=== PATIENT | male | born 1955 | race Caucasian/White ===

== ENCOUNTER → 2018-10-19 | Outpatient (CLI) | payer BC ==
[~2018-10-19] MED LIST: BARIUM SUSPENSION 2.1% (REDI-CAT 2) 450 ML PO ONE
--- NOTE | 2018-10-19 12:54 | Diagnostic Imaging Report ---
PROCEDURE: CT abdomen and pelvis without contrast. TECHNIQUE: Multiple contiguous axial images were obtained through the abdomen and pelvis without the use of intravenous contrast. INDICATION: Malignant neoplasm of the right kidney, status post nephrectomy. COMPARISON: No prior studies are available for comparison. The lung bases are clear. The liver contains a tiny low density in the right lobe measuring 6 mm. This is too small to accurately characterize. No other liver lesions are seen. The gallbladder is unremarkable. No biliary ductal dilatation is seen. The pancreas and spleen are unremarkable. No adrenal mass is identified. The right kidney is surgically absent. No definite residual or recurrent mass in the right renal fossa is identified. Solitary left kidney is unremarkable. No definite hydronephrosis is identified. Aorta is nonaneurysmal. No central retroperitoneal or mesenteric lymphadenopathy is identified. Small and large bowel loops are normal in caliber. Bladder is unremarkable. There is no ascites. No definite pelvic lymphadenopathy is seen. IMPRESSION: 1. Status post right nephrectomy. No residual or recurrent mass is seen. No definite findings to suggest metastatic disease are detected. Dictated by: Dictated on workstation # [id number]
== END ==
LOC: RAD FS 09:55
PROVIDERS: ATTEND Emergency Medicine
DX: C64.1 Malignant neoplasm of right kidney, except renal pelvis (principal); Z90.5 Acquired absence of kidney
CPT/HCPCS: 74176

== ENCOUNTER 2018-12-22 05:40 | Outpatient (CLI) | payer BC ==
[~2018-12-22] VITALS: Ht 177.8 cm; Wt 96.2 kg
[2018-12-22] MEDS ORDERED: CHLO25CA10 PO (12:58)
[2018-12-22] MEDS ORDERED: SERT100T PO (15:32)
[2018-12-22] MEDS ORDERED: CARV25TA PO (15:32)
[2018-12-22] MEDS ORDERED: LOSA100T57 PO (15:32)
[2018-12-22] MEDS ORDERED: SIMV80TA2 PO (15:32)
[2018-12-22] MEDS ORDERED: LISI1TAB8 PO (15:32)
[2018-12-22] MEDS ORDERED: EZET10TA5 PO (15:32)
[2018-12-22] MEDS ORDERED: RANI150T46 PO (15:32)
[2018-12-22] MEDS ORDERED: QUET50TA PO (15:32)
[2018-12-24] MEDS ORDERED: HYDR-34 PO (13:37)
== END 2018-12-22 15:42 | disposition home or self-care (01) ==
LOC: PREOP 05:40
PROVIDERS: ATTEND Surgery
DX: Z01.818 Encounter for other preprocedural examination (principal)

== ENCOUNTER 2018-12-25 23:14 | Inpatient (IN) | payer BC ==
[~2018-12-25] VITALS: Ht 177.8 cm; Wt 100.3 kg
[~2018-12-25 23:14] MED LIST changes: -BARIUM SUSPENSION 2.1% (REDI-CAT 2) 450 ML PO ONE; +CARV25TA PO; +CHLO25CA10 PO; +EZET10TA5 PO; +HYDR-34 PO; +LISI1TAB8 PO; +LOSA100T57 PO; +QUET50TA PO; +RANI150T46 PO; +SERT100T PO; +SIMV80TA2 PO
[2018-12-25] MEDS ORDERED: RT-ALBUTEROL/IPRATROPIUM 3 ML (DUONEB) VIAL INH ONE (23:45)
--- NOTE | 2018-12-25 23:49 | ED General ---
General Chief Complaint: Respiratory Problems Stated Complaint: SOB Source of Information: Patient Exam Limitations: No Limitations History of Present Illness Date Seen by Provider: December 25, 2018 Time Seen by Provider: 23:37 Initial Comments Here with increasing shortness of breath today. Did have a ventral hernia repair yesterday and was doing okay until this morning when it became increasingly short of breath. That persisted throughout the day until tonight. They opted to come here from [place] because there is concerns that he might need to be admitted. On arrival he was 78% on room air and he is not normally on oxygen. Does have history of COPD. He is having cough and wheezing. He does have coarse and wet sounding cough. Denies fever. Does have chronic diarrhea since his kidney removal last year. He did have renal cancer. Denies nausea or vomiting. Denies chest pain. Timing/Duration: 12-24 Hours Severity: Moderate Modifying Factors: worse with Movement Associated Systoms: No Chest Pain; Cough; No Fever/Chills, No Nausea/Vomiting; Shortness of Air, Weakness Allergies and Home Medications Allergies Coded Allergies: No Known Drug Allergies (Unverified , 12/22/18) Home Medications Carvedilol 25 Mg Tablet, 25 MG PO BID, (Reported) Chlordiazepoxide HCl 25 Mg Capsule, 25 MG PO QID, (Reported) Ezetimibe 10 Mg Tablet, 10 MG PO DAILY, (Reported) Hydrocodone Bit/Acetaminophen 1 Ea Tablet, 1 EACH PO Q4H PRN for PAIN-MODERATE Prescribed by: FINESSE RAI on 12/24/18 1337 Lisinopril/Hydrochlorothiazide 1 Each Tablet, 1 EACH PO DAILY, (Reported) Losartan Potassium 100 Mg Tablet, 100 MG PO DAILY, (Reported) Quetiapine Fumarate 50 Mg Tablet, 50 MG PO HS, (Reported) Ranitidine HCl 150 Mg Tablet, 150 MG PO DAILY, (Reported) Sertraline HCl 100 Mg Tablet, 100 MG PO DAILY, (Reported) Simvastatin 80 Mg Tablet, 40 MG PO HS, (Reported) Patient Home Medication List Home Medication List Reviewed: Yes Review of Systems Review of Systems Constitutional: see HPI; No chills, No fever EENTM: no symptoms reported Respiratory: see HPI Cardiovascular: No chest pain, No edema Gastrointestinal: No abdominal pain, No nausea, No vomiting; other (mild abdominal pain related to post operative pain.) Genitourinary: no symptoms reported Musculoskeletal: no symptoms reported All Other Systems Reviewed Negative Unless Noted: Yes Past Hsjzwox-Qdanja-Zhmpoc Hx Past Med/Social Hx: Reviewed Nursing Past Med/Soc Hx Patient Social History Alcohol Use: Denies Use Recreational Drug Use: No Smoking Status: Former Smoker Type Used: Cigarettes Former Smoker, Quit: Jul 24, 2018 2nd Hand Smoke Exposure: No Recent Foreign Travel: No Contact w/Someone Who Travel: No Recent Hopitalizations: No Seasonal Allergies Seasonal Allergies: No Past Medical History Surgeries: Yes (leg fx, knee scope) Abdominal, Nephrectomy, Orthopedic Respiratory: Yes Emphysema Cardiac: Yes Hypertension Neurological: No Genitourinary: Yes (kidney cancer) Gastrointestinal: Yes Abdominal Hernia, Gastroesophageal Reflux, Irritable Bowel Musculoskeletal: Yes Chronic Back Pain Endocrine: No HEENT: No Cancer: Yes Kidney What Type of Treatment Did You: Surgical Intervention Psychosocial: Yes Depression Integumentary: No Blood Disorders: No Family Medical History Reviewed and Corrections made No Pertinent Family Hx Physical Exam-Suspected Sepsis Physical Exam Vital Signs Vital Signs - First Documented 12/25/18 12/25/18 23:28 23:30 Temp 98.0 Pulse 69 Resp 22 B/P (MAP) 110/88 (95) Pulse Ox 78 O2 Delivery Room Air O2 Flow Rate 5.00 Capillary Refill : Height, Weight, BMI Height: 5'10.00" Weight: 212lbs. 0.0oz. 96.975559br; 30.4 BMI Method: General Appearance: WD/WN, Mild Distress (respiratory improved with oxygen) HEENT: PERRL/EOMI, Pharynx Normal Neck: Non Tender, Supple Respiratory: Lungs Clear, Normal Breath Sounds Cardiovascular: Regular Rate, Rhythm, No Murmur Gastrointestinal: Soft, Tenderness (near incision covered with a binder) Back: Normal Inspection, No CVA Tenderness, No Vertebral Tenderness Extremity: Normal Range of Motion, Non Tender Neurologic/Psychiatric: Alert, Oriented x3 Skin: normal color, warm/dry Focused Exam Lactate Level 12/25/18 23:30: Lactic Acid Level 1.21 Lactic Acid Level Laboratory Tests Test 12/25/18 23:30 Lactic Acid Level 1.21 MMOL/L (0.50-2.00) Progress/Results/Core Measures Suspected Sepsis SIRS Temperature: Pulse: Respiratory Rate: Laboratory Tests 12/25/18 23:30: White Blood Count 14.2H Blood Pressure / Mean: 5/24/19 23:30: Lactic Acid Level 1.21 Laboratory Tests 12/25/18 23:30: Creatinine 1.47H, INR Comment 1.1, Platelet Count 158, Total Bilirubin 1.2H Results/Orders Lab Results Laboratory Tests Test 12/25/18 23:30 12/25/18 23:40 Range/Units White Blood Count 14.2 H 4.3-11.0 10^3/uL Red Blood Count 3.83 L 4.35-5.85 10^6/uL Hemoglobin 12.4 L 13.3-17.7 G/DL Hematocrit 35 L 40-54 % Mean Corpuscular Volume 92 80-99 FL Mean Corpuscular Hemoglobin 32 25-34 PG Mean Corpuscular Hemoglobin Concent 35 32-36 G/DL Red Cell Distribution Width 13.1 10.0-14.5 % Platelet Count 158 130-400 10^3/uL Mean Platelet Volume 9.6 7.4-10.4 FL Neutrophils (%) (Auto) 83 H 42-75 % Lymphocytes (%) (Auto) 5 L 12-44 % Monocytes (%) (Auto) 11 0-12 % Eosinophils (%) (Auto) 2 0-10 % Basophils (%) (Auto) 0 0-10 % Neutrophils # (Auto) 11.8 H 1.8-7.8 X 10^3 Lymphocytes # (Auto) 0.7 L 1.0-4.0 X 10^3 Monocytes # (Auto) 1.5 H 0.0-1.0 X 10^3 Eosinophils # (Auto) 0.2 0.0-0.3 10^3/uL Basophils # (Auto) 0.0 0.0-0.1 10^3/uL Neutrophils % (Manual) 86 % Lymphocytes % (Manual) 4 % Monocytes % (Manual) 10 % Prothrombin Time 15.1 H 12.2-14.7 SEC INR Comment 1.1 0.8-1.4 Activated Partial Thromboplast Time 40 H 24-35 SEC Sodium Level 124 *L 135-145 MMOL/L Potassium Level 4.1 3.6-5.0 MMOL/L Chloride Level 89 L 98-107 MMOL/L Carbon Dioxide Level 24 21-32 MMOL/L Anion Gap 11 5-14 MMOL/L Blood Urea Nitrogen 17 7-18 MG/DL Creatinine 1.47 H 0.60-1.30 MG/DL Estimat Glomerular Filtration Rate 49 BUN/Creatinine Ratio 12 Glucose Level 116 H 70-105 MG/DL Lactic Acid Level 1.21 0.50-2.00 MMOL/L Calcium Level 9.0 8.5-10.1 MG/DL Corrected Calcium 8.8 8.5-10.1 MG/DL Total Bilirubin 1.2 H 0.1-1.0 MG/DL Aspartate Amino Transf (AST/SGOT) 20 5-34 U/L Alanine Aminotransferase (ALT/SGPT) 19 0-55 U/L Alkaline Phosphatase 54 40-136 U/L Total Protein 7.2 6.4-8.2 GM/DL Albumin 4.2 3.2-4.5 GM/DL Blood Gas Puncture Site RIGHT RADIAL Blood Gas Patient Temperature 98.0 Arterial Blood pH 7.34 *L 7.37-7.43 Arterial Blood Partial Pressure CO2 51 H 35-45 MMHG Arterial Blood Partial Pressure O2 82 79-93 MMHG Arterial Blood HCO3 27 23-27 MMOL/L Arterial Blood Total CO2 28.5 21.0-31.0 MMOL/L Arterial Blood Oxygen Saturation 96 94-100 % Arterial Blood Base Excess 1.7 -2.5-2.5 MMOL/L Sudhakar Test POSITIVE Blood Gas Ventilator Setting NO Blood Gas Inspired Oxygen 5 My Orders Orders - MAYTE TAY MD Cbc With Automated Diff (12/25/18 23:40) Comprehensive Metabolic Panel (12/25/18 23:40) Blood Culture (12/25/18 23:40) Sputum Culture (12/25/18 23:40) Protime With Inr (12/25/18 23:40) Partial Thromboplastin Time (12/25/18 23:40) Ed Iv/Invasive Line Start (12/25/18 23:40) Ekg Tracing (12/25/18 23:40) Vital Signs Adult Sepsis Patie Q15M (12/25/18 23:40) O2 (12/25/18 23:40) Remove Rings In Anticipation O (12/25/18 23:40) Lactic Acid Analyzer (12/25/18 23:40) Albuterol/Ipra Inhalation Soln (Duoneb I (12/25/18 23:45) Svn Small Volume Nebulizer (12/25/18 23:40) Arterial Blood Gas (12/25/18 23:40) Manual Differential (12/25/18 23:30) Albuterol Pre-Mix Nebs (Rt) (Proventil (12/25/18 23:59) Chest 1 View, Ap/Pa Only (12/26/18 00:01) Ipratropium 0.02% Neb Solution (Atrovent (12/26/18 00:22) Urinalysis (12/26/18 00:29) Urine Culture (12/26/18 00:29) Albuterol Pre-Mix Nebs (Rt) (Proventil (12/26/18 00:57) Ipratropium 0.02% Neb Solution (Atrovent (12/26/18 01:00) Svn Small Volume Nebulizer (12/26/18 00:57) Svn Small Volume Nebulizer (12/26/18 00:57) Ed Iv/Invasive Line Start (12/26/18 01:02) Ns Iv 1000 Ml (Sodium Chloride 0.9%) (12/26/18 01:02) Cefepime Injection (Maxipime Injection) (12/26/18 01:15) Methylprednisolone Sod Succ (Solu-Medrol (12/26/18 01:14) Vital Signs/I&O 12/25/18 12/25/18 23:28 23:30 Temp 98.0 Pulse 69 Resp 22 B/P (MAP) 110/88 (95) Pulse Ox 78 95 O2 Delivery Room Air Nasal Cannula O2 Flow Rate 5.00 Capillary Refill : Progress Note : Progress Note Seen and evaluated. IV, labs, blood cultures, lactic acid, EKG and chest x-ray ordered. Duo neb ordered. We will go ahead and check ABG as patient appears to be somewhat groggy and there is concerns about hypercarbia. Patient was certainly hypoxic on arrival and is at 94% on a couple liters via nasal cannula. Monitor patient. Repeat albuterol 3 ordered and completed. This did help a little bit but did not completely resolve his symptoms. We will initiate Vapotherm due to relative hypoxia on ABG on 5 L nasal cannula. We will also initiate continuous hour-long treatment. I did discuss the case with Dr. Carrillo at 0100. He accepts patient for admission, inpatient status for COPD exacerbation. Patient is coughing up thick mucus. While this may be COPD, he does have elevated white count. Lactic acid is negative. I do not believe he has significant sepsis event. We will give normal saline [address] angiogram of the chest but he only has one kidney so we will hold on that. Solu- Medrol 125 mg IV ordered and cefepime 1 g IV ordered. We will continue gentle hydration after first liter of fluid. Overall patient is doing much better now. Patient agrees to admission. ECG Initial ECG Impression Date: December 25, 2018 Initial ECG Impression Time: 23:48 Initial ECG Rate: 68 Initial ECG Rhythm: Normal Sinus Comment Sinus rhythm with normal axis. No evidence of ST elevation SD. No previous available for comparison. Interpreted by me. Diagnostic Imaging Diagonstic Imaging: Xray Plain Films/CT/US/NM/MRI: chest Comments Bibasilar atelectasis versus infiltrate. Departure Communication (Admissions) Time/Spoke to Admitting Phy: 01:00 Impression Primary Impression: COPD exacerbation Additional Impressions: Pneumonia Qualified Codes: J18.1 - Lobar pneumonia, unspecified organism Hypoxia Disposition: ADMITTED INPATIENT Condition: Stable Admissions Decision to Admit Reason: Admit from ER (General) Decision to Admit/Date: December 26, 2018 Time/Decision to Admit Time: 01:00 Departure-Patient Inst. Referrals: MARCO A KIM DO (PCP/Family) Primary Care Physician MAYTE TAY MD December 25, 2018 23:49
[2018-12-25 23:50] LABS: BASOPHILS % (AUTO) 0 % (0-10); EOSINOPHILS # (AUTO) 0.2 10^3/uL (0.0-0.3); EOSINOPHILS % (AUTO) 2 % (0-10); HEMATOCRIT 35 % (40-54); HEMOGLOBIN 12.4 G/DL (13.3-17.7); LYMPHOCYTES # (AUTO) 0.7 X 10^3 (1.0-4.0); LYMPHOCYTES % (AUTO) 5 % (12-44); MEAN CORPUSCULAR HEMOGLOBIN 32 PG (25-34); MEAN CORPUSCULAR HGB CONC 35 G/DL (32-36); MEAN CORPUSCULAR VOLUME 92 FL (80-99); MEAN PLATELET VOLUME 9.6 FL (7.4-10.4); MONOCYTES # (AUTO) 1.5 X 10^3 (0.0-1.0); MONOCYTES % (AUTO) 11 % (0-12); NEUTROPHILS # (AUTO) 11.8 X 10^3 (1.8-7.8); NEUTROPHILS % (AUTO) 83 % (42-75); PLATELET COUNT 158 10^3/uL (130-400); RED CELL DISTRIBUTION WIDTH 13.1 % (10.0-14.5); WHITE BLOOD COUNT 14.2 10^3/uL (4.3-11.0)
[2018-12-25 23:53] LABS: ABG BASE EXCESS 1.7 MMOL/L (-2.5-2.5); ABG OXYGEN SATURATION 96 % (94-100); ABG PCO2 51 MMHG (35-45); ABG PO2 82 MMHG (79-93); ABG TCO2 28.5 MMOL/L (21.0-31.0)
[2018-12-25 23:54] LABS: ABG PH 7.34 (7.37-7.43); ALLENS TEST POSITIVE; INSPIRED O2 5; VENTILATOR NO
[2018-12-25 23:56] LABS: INR 1.1 (0.8-1.4); PROTHROMBIN TIME PATIENT 15.1 SEC (12.2-14.7)
[2018-12-25] MEDS ORDERED: RT-ALBUTEROL SULF 2.5 MG/3 ML PRE-MIX VIAL INH STA (23:59)
[2018-12-26] VITALS (24 sets, daily range): BP systolic 125–169; BP diastolic 52–107
[2018-12-26 00:03] LABS: ALBUMIN 4.2 GM/DL (3.2-4.5); BILIRUBIN,TOTAL 1.2 MG/DL (0.1-1.0); CREATININE SERUM 1.47 MG/DL (0.60-1.30); POTASSIUM 4.1 MMOL/L (3.6-5.0); TOTAL PROTEIN 7.2 GM/DL (6.4-8.2)
[2018-12-26] MEDS ORDERED: RT-IPRATROPIUM (ATROVENT) 0.5MG/2.5ML AMP IH ONE ×2 (00:22→01:00)
[2018-12-26 00:28] LABS: LYMPHOCYTES % (MANUAL) 4 %; MONOCYTES % (MANUAL) 10 %; NEUTROPHILS % (MANUAL) 86 %
[2018-12-26] MEDS ORDERED: RT-ALBUTEROL SULF 2.5 MG/3 ML PRE-MIX VIAL INH STA (00:57)
[2018-12-26] MEDS ORDERED: NS IV 1000 ML 1,000 ML IV ONE (01:02)
[2018-12-26] MEDS ORDERED: methylPREDNISolone 125 MG (Solu-MEDROL) VIAL IV STA (01:14)
[2018-12-26] MEDS ORDERED: CEFEPIME INJECTION 1,000 MG in WATER (STERILE) FOR INJECTION 10 ML IV ONE (01:15)
[2018-12-26 01:46] LABS: BILIRUBIN,URINE NEGATIVE (NEGATIVE); CLARITY,URINE CLEAR; COLOR,URINE YELLOW; GLUCOSE, URINE (UA) NEGATIVE (NEGATIVE); KETONES,URINE NEGATIVE (NEGATIVE); LEUKOCYTE ESTERASE ,URINE NEGATIVE (NEGATIVE); NITRITE,URINE NEGATIVE (NEGATIVE); PH,URINE 6 (5-9); PROTEIN,URINE 2+ (NEGATIVE); UROBILINOGEN,URINE NORMAL (NORMAL)
[2018-12-26 01:56] LABS: BACTERIA,URINE TRACE /HPF; HYALINE CASTS, URINE 0-2 /LPF; SQUAMOUS EPITHELIAL CELL,UR RARE /HPF
[2018-12-26] MEDS: NS IV 1000 ML 1,000 ML IV SCH ×2 (02:15→22:07)
[2018-12-26] MEDS ORDERED: CATHETER FLUSH 10 ML SYR IV PRN (02:15)
[2018-12-26] MEDS ORDERED: RT-ALBUTEROL/IPRATROPIUM 3 ML (DUONEB) VIAL INH PRN (03:30)
[2018-12-26 04:18] LABS: BASOPHILS % (AUTO) 0 % (0-10); EOSINOPHILS # (AUTO) 0.1 10^3/uL (0.0-0.3); EOSINOPHILS % (AUTO) 1 % (0-10); HEMATOCRIT 33 % (40-54); HEMOGLOBIN 11.7 G/DL (13.3-17.7); LYMPHOCYTES # (AUTO) 0.4 X 10^3 (1.0-4.0); LYMPHOCYTES % (AUTO) 4 % (12-44); MEAN CORPUSCULAR HEMOGLOBIN 33 PG (25-34); MEAN CORPUSCULAR HGB CONC 36 G/DL (32-36); MEAN CORPUSCULAR VOLUME 91 FL (80-99); MEAN PLATELET VOLUME 9.5 FL (7.4-10.4); MONOCYTES # (AUTO) 0.6 X 10^3 (0.0-1.0); MONOCYTES % (AUTO) 5 % (0-12); NEUTROPHILS # (AUTO) 9.5 X 10^3 (1.8-7.8); NEUTROPHILS % (AUTO) 90 % (42-75); PLATELET COUNT 129 10^3/uL (130-400); RED CELL DISTRIBUTION WIDTH 13.2 % (10.0-14.5); WHITE BLOOD COUNT 10.5 10^3/uL (4.3-11.0)
[2018-12-26 04:39] LABS: CREATININE SERUM 1.33 MG/DL (0.60-1.30); POTASSIUM 4.3 MMOL/L (3.6-5.0)
[2018-12-26 04:40] LABS: ALBUMIN 3.9 GM/DL (3.2-4.5); BILIRUBIN,TOTAL 0.9 MG/DL (0.1-1.0); CALCIUM 8.5 MG/DL (8.5-10.1); TOTAL PROTEIN 6.8 GM/DL (6.4-8.2)
[2018-12-26] MEDS: RT-ALBUTEROL/IPRATROPIUM 3 ML (DUONEB) VIAL INH SCH ×5 (06:32→23:43)
[2018-12-26] MEDS: CEFEPIME 1,000 MG/SWFI 10 ML IV PUSH IV SCH ×6 (06:36→18:18)
[2018-12-26] MEDS: CATHETER FLUSH 10 ML SYR IV SCH ×3 (06:39→22:08)
[2018-12-26] MEDS: methylPREDNISolone 125 MG (Solu-MEDROL) VIAL IV SCH ×3 (06:39→18:18)
--- NOTE | 2018-12-26 07:51 | Diagnostic Imaging Report ---
INDICATION: Shortness of air EXAMINATION: Chest 12/26/2018 FINDINGS: The heart is unremarkable. Pulmonary vasculature is congested. There is atelectasis versus infiltrate at the left lung base. This is less pronounced but also noted at the right lung base. Findings of mild edema seen throughout the remaining lungs. No pneumothorax, no effusions. IMPRESSION: 1. Suspected atelectasis or infiltrate at the bases, left greater than right. 2. Mild pulmonary edema. Dictated by: Dictated on workstation # [id number]
--- NOTE | 2018-12-26 08:57 | History & Physical-Hospitalist ---
History of Present Illness HPI/Chief Complaint The patient is a 63-year-old white male with known COPD who on the morning of the underwent ventral hernia repair per Dr. RAI. He denied any in more shortness of breath than usual the time of this discharge by this a day progressed he became increasingly more short of breath with wheezing and reportedly loose sounding but nonproductive cough aggravated by the fact that he could not cough forcefully due to abdominal pain from his surgery. He progressed to shortness of breath at rest and presented emergency room in significant respiratory distress with O2 saturations in the upper 70s he is retaining CO2 as well. Vapotherm was initiated in addition to prolong breathing treatments and IV Solu-Medrol. With this he was able to produce some thick brownish sputum which is not his norm. His white count was significantly elevated without evidence for overt pneumonia but did have some basilar atelectasis right greater than left for which pneumonia could not be excluded. He was admitted for treatment of acute COPD exacerbation meeting sepsis criteria although not severe. Lactate levels were within normal limits. He reports no past hospitalizations for pneumonia although he has had some outpatient br onchitis and one other episode of pneumonia. He is never been on a mechanical ventilator and has over [id number] smoking history but quit 6 years ago the presumed cause of the COPD. He reports history of peripheral vascular disease as well as left lumbar radiculopathy due to previous injury that is reportedly inoperable. He also was diagnosed with right renal cell carcinoma last year underwent right nephrectomy. There has been no reported evidence for recurrence. Date Seen 12/26/18 Time Seen by a Provider: 08:00 Attending Physician Bowen Brennan MD PCP Ortega Livingston DO Referring Physician Date of Admission December 26, 2018 at 01:16 Home Medications & Allergies Home Medications Reviewed patient Home Medication Reconciliation performed by pharmacy medication reconciliations installation and service technician and/or nursing. Patients Allergies have been reviewed. Allergies Allergies Coded Allergies No Known Drug Allergies (Unverified12/22/18) Past Tuexvoh-Xyexkx-Umtxva Hx Past Med/Social Hx: Reviewed Nursing Past Med/Soc Hx, Reviewed and Corrections made Patient Social History Alcohol Use: Denies Use Recreational Drug Use: No Smoking Status: Former Smoker Former Smoker, Quit: Jul 24, 2018 Type Used: Cigarettes 2nd Hand Smoke Exposure: No Recent Foreign Travel: No Contact w/other who traveled: No Recent Hopitalizations: No Recent Infectious Disease Expo: No Seasonal Allergies Seasonal Allergies: No Past Medical History Surgeries: Abdominal, Nephrectomy, Orthopedic Cardiac: Hypertension Gastrointestinal: Abdominal Hernia, Gastroesophageal Reflux, Irritable Bowel Musculoskeletal: Chronic Back Pain Cancer: Kidney What Type of Treatment Did You: Surgical Intervention Psychosocial: Depression History of Blood Disorders: No Family History Reviewed and Corrections made No Pertinent Family Hx Review of Systems Constitutional: see HPI; No chills, No diaphoresis, No dizziness, No fever, No malaise, No weight gain, No weight loss EENTM: other (Postnasal drip reported but is been going on through most of the winter and spring with no purulent discharge being noted and no significant nasal congestion or throat pain reported.) Respiratory: no symptoms reported, cough, dyspnea on exertion; No hemoptysis; orthopnea, phlegm, short of breath; No stridor; wheezing; No other Cardiovascular: no symptoms reported; No chest pain, No edema, No Hx of Intervention, No palpitations, No syncope, No vascular heart diseas, No other Gastrointestinal: abdominal pain (Over hernia incision site only) Physical Exam Physical Exam Vital Signs Vital Signs - First Documented 12/25/18 12/25/18 12/26/18 23:28 23:30 00:25 Temp 98.0 Pulse 69 Resp 22 B/P (MAP) 110/88 (95) Pulse Ox 78 O2 Delivery Room Air O2 Flow Rate 5.00 FiO2 50 Capillary Refill : Less Than 3 Seconds Height, Weight, BMI Height: 5'10.00" Weight: 223lbs. 3.0oz. 101.715200uq; 32.0 BMI Method:Stated General Appearance: No Apparent Distress, WD/WN HEENT: PERRL/EOMI Neck: Full Range of Motion, Normal Inspection, Non Tender Respiratory: Chest Non Tender, No Accessory Muscle Use (This morning), Crackles (In both bases right greater than left), Wheezing (Throughout predominantly on expiration) Cardiovascular: Regular Rate, Rhythm, No Edema, No Gallop, No JVD, No Murmur, Normal Peripheral Pulses Gastrointestinal: Normal Bowel Sounds, No Organomegaly, No Pulsatile Mass, Non Tender, Soft, Distended Extremity: Normal Inspection, Normal Range of Motion, Non Tender, No Calf Tenderness, No Pedal Edema, Slow Capillary Refill, Other (Feet warm but dorsalis pedis and posterior tibial pulses are absent bilaterally some atrophic changes are noted involving the feet right greater than left predominantly just loss of hair.) Neurologic/Psychiatric: Alert, Oriented x3, Normal Mood/Affect Skin: Normal Color, Warm/Dry Results Results/Procedures Labs Laboratory Tests 12/25/18 23:30 12/26/18 04:08 Patient resulted labs reviewed. Assessment/Plan Admission Diagnosis A/P 1. Acute hypercapnic respiratory failure due to underlying acute bronchitis or pneumonia following ventral hernia surgery. Cefepime anti-inflammatory and bronchodilator therapy have been initiated addition improving. 2. Sepsis not severe secondary to number 1. 3. 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 4. History of solitary kidney due to right nephrectomy for hypernephroma reportedly last year. No reported evidence for recurrence. Admission Status: Inpatient Order (span 2 midnights) Reason for Inpatient Admission: See admission diagnosis Clinical Quality Measures DVT/VTE Risk/Contraindication: Risk Factor Score Per Nursin RFS Level Per Nursing on Admit: 4+=Very High BOWEN BRENNAN MD December 26, 2018 08:57
[2018-12-26] MEDS: HYDROcodone/APAP 5 MG/325 MG (LORTAB) TAB PO PRN ×2 (08:59→16:24)
[2018-12-26] MEDS: SERTRALINE 100 MG (ZOLOFT) TAB PO SCH (08:59)
[2018-12-26] MEDS: LOSARTAN 100 MG (COZAAR) TABLET PO SCH (08:59)
[2018-12-26] MEDS: FAMOTIDINE 20 MG (PEPCID) TABLET PO SCH ×2 (08:59→19:59)
[2018-12-26] MEDS: ATORVASTATIN 40 MG (LIPITOR) TABLET PO SCH (19:58)
[2018-12-26] MEDS: eZETimibe 10 MG (ZETIA) TABLET PO SCH (19:58)
[2018-12-26] MEDS: QUEtiapine 25 MG (SEROquel) TAB IMMEDIATE RELEASE PO SCH (19:59)
--- NOTE | 2018-12-26 22:02 | NUR ---
2139-PT CALLS THIS RN IN TO THE ROOM-PT STATES HE FEELS "FULL LIKE MY BOWELS NEED TO MOVE" PT UNABLE TO TELL THIS RN WHEN HIS LAST BM WAS, PT ALSO STATES THAT HE HAS INDIGESTION 2148-THIS RN CALLED DR. BRENNAN TO INFORM HIM OF PT CONCERNS NEW ORDERS RECEIVED & REPEATED BACK-DR BRENNAN AGREED TO THEM
[2018-12-26] MEDS: BISACODYL 5 MG (DULCOLAX) TABLET PO SCH (22:08)
[2018-12-26] MEDS: ANTACID SUSP 30 ML UDC (MYLANTA) PO PRN (22:08)
[2018-12-27] VITALS (9 sets, daily range): BP systolic 130–176; BP diastolic 71–97
[2018-12-27] MEDS: methylPREDNISolone 125 MG (Solu-MEDROL) VIAL IV SCH ×4 (00:41→18:39)
[2018-12-27] MEDS: CEFEPIME 1,000 MG/SWFI 10 ML IV PUSH IV SCH ×8 (00:42→18:39)
[2018-12-27] MEDS: RT-ALBUTEROL/IPRATROPIUM 3 ML (DUONEB) VIAL INH SCH ×6 (02:12→22:58)
[2018-12-27] MEDS: CATHETER FLUSH 10 ML SYR IV SCH ×3 (05:51→22:00)
[2018-12-27] MEDS: LOSARTAN 100 MG (COZAAR) TABLET PO SCH (09:08)
[2018-12-27] MEDS: FAMOTIDINE 20 MG (PEPCID) TABLET PO SCH ×2 (09:08→20:44)
[2018-12-27] MEDS: SERTRALINE 100 MG (ZOLOFT) TAB PO SCH (09:08)
[2018-12-27] MEDS: BISACODYL 5 MG (DULCOLAX) TABLET PO SCH (09:09)
--- NOTE | 2018-12-27 09:32 | Progress Note-Hospitalist ---
Subjective HPI/CC On Admission Date Seen by Provider: December 27, 2018 Time Seen by Provider: 09:30 The patient is a 63-year-old white male with known COPD who on the morning of the underwent ventral hernia repair per Dr. RAI. He denied any in more shortness of breath than usual the time of this discharge by this a day progressed he became increasingly more short of breath with wheezing and reportedly loose sounding but nonproductive cough aggravated by the fact that he could not cough forcefully due to abdominal pain from his surgery. He progressed to shortness of breath at rest and presented emergency room in significant respiratory distress with O2 saturations in the upper 70s he is re taining CO2 as well. Vapotherm was initiated in addition to prolong breathing treatments and IV Solu-Medrol. With this he was able to produce some thick brownish sputum which is not his norm. His white count was significantly elevated without evidence for overt pneumonia but did have some basilar atelectasis right greater than left for which pneumonia could not be excluded. He was admitted for treatment of acute COPD exacerbation meeting sepsis criteria although not severe. Lactate levels were within normal limits. He reports no past hospitalizations for pneumonia although he has had some outpatient bronchitis and one other episode of pneumonia. He is never been on a mechanical ventilator and has over 21-pstr-lxlc smoking history but quit 6 years ago the presumed cause of the COPD. He reports history of peripheral vascular disease as well as left lumbar radiculopathy due to previous injury that is reportedly inoperable. He also was diagnosed with right renal cell carcinoma last year underwent right nephrectomy. There has been no reported evidence for recurrence. Subjective/Events-last exam Patient feeling less short of breath sputum clearing somewhat without hemoptysis. No chills fever or Reiger's reported. Focused Exam Lactate Level 12/25/18 23:30: Lactic Acid Level 1.21 Objective Exam Vital Signs Vital Signs Date Time Temp Pulse Resp B/P (MAP) Pulse Ox O2 Delivery O2 Flow Rate FiO2 12/27/18 09:00 Vapotherm 10.00 12/27/18 08:10 54 12/27/18 07:33 97.4 26 139/74 (95) 89 12/27/18 06:53 40 Capillary Refill : Less Than 3 Seconds General Appearance: No Apparent Distress, WD/WN HEENT: PERRL/EOMI Neck: Full Range of Motion, Normal Inspection, Non Tender Respiratory: Chest Non Tender, No Accessory Muscle Use (This morning), Crackles (In both bases right greater than left), Wheezing (Upper airway noises noted with no wheezing in the supine position with regular respiration. Improved from yesterday.) Cardiovascular: Regular Rate, Rhythm, No Edema, No Gallop, No JVD, No Murmur, Normal Peripheral Pulses Gastrointestinal: Normal Bowel Sounds, No Organomegaly, No Pulsatile Mass, Non Tender, Soft, Distended Back: Normal Inspection, No CVA Tenderness, No Vertebral Tenderness Extremity: Normal Inspection, Normal Range of Motion, Non Tender, No Calf Tenderness, No Pedal Edema, Slow Capillary Refill, Other (Feet warm but dorsalis pedis and posterior tibial pulses are absent bilaterally some atrophic changes are noted involving the feet right greater than left predominantly just loss of hair.) Neurologic/Psychiatric: Alert, Oriented x3, Normal Mood/Affect Skin: Normal Color, Warm/Dry Results/Procedures Lab Patient resulted labs reviewed. Assessment/Plan Assessment and Plan Assess & Plan/Chief Complaint Admission Diagnosis A/P 1. Acute hypercapnic respiratory failure due to underlying acute bronchitis or pneumonia following ventral hernia surgery. Cefepime anti-inflammatory and bronchodilator therapy will be continued condition improving transfer to the floor bed available 2. Sepsis not severe secondary to number 1. 3. 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 4. History of solitary kidney due to right nephrectomy for hypernephroma reportedly last year. No reported evidence for recurrence. Clinical Quality Measures DVT/VTE Risk/Contraindication: Risk Factor Score Per Nursin RFS Level Per Nursing on Admit: 4+=Very High AMBER BRENNAN MD December 27, 2018 09:32
--- NOTE | 2018-12-27 10:30 | NUR ---
patient transferred to 4th floor room 406, report given to Breonna WILL to assume care of patient. personal belongings sent with patient at this time.
--- NOTE | 2018-12-27 10:30 | NUR ---
Report received from Gita WILL. Patient oriented to room, and call light. Patient A&O and denies any pain or discomfort at this time, will continue to monitor.
[2018-12-27] MEDS ORDERED: WATER (STERILE) FOR INJECTION 10 ML ONE ×2 (12:28→18:04)
[2018-12-27] MEDS ORDERED: CEFEPIME 1 GM (MAXIPIME) VIAL ONE ×2 (12:28→18:04)
[2018-12-27] MEDS: ATORVASTATIN 40 MG (LIPITOR) TABLET PO SCH (20:44)
[2018-12-27] MEDS: QUEtiapine 25 MG (SEROquel) TAB IMMEDIATE RELEASE PO SCH (20:44)
[2018-12-27] MEDS: eZETimibe 10 MG (ZETIA) TABLET PO SCH (20:44)
[2018-12-28] MEDS ORDERED: cefTRIAXone 1,000 MG IV (ROCEPHIN) VIAL ONE (00:29)
[2018-12-28 00:30] VITALS: BP 146/86
[2018-12-28] MEDS ORDERED: WATER (STERILE) FOR INJECTION 10 ML ONE ×2 (00:30→00:52)
[2018-12-28] MEDS: methylPREDNISolone 125 MG (Solu-MEDROL) VIAL IV SCH ×4 (00:46→17:19)
[2018-12-28] MEDS: CEFEPIME 1,000 MG/SWFI 10 ML IV PUSH IV SCH ×8 (00:47→17:19)
[2018-12-28] MEDS ORDERED: CEFEPIME 1 GM (MAXIPIME) VIAL ONE ×2 (00:51→06:19)
[2018-12-28] MEDS: NS IV 1000 ML 1,000 ML IV SCH ×2 (01:41→15:55)
[2018-12-28] MEDS: RT-ALBUTEROL/IPRATROPIUM 3 ML (DUONEB) VIAL INH SCH ×6 (02:16→23:08)
[2018-12-28] MEDS: ANTACID SUSP 30 ML UDC (MYLANTA) PO PRN (02:34)
[2018-12-28] MEDS: CATHETER FLUSH 10 ML SYR IV SCH ×3 (06:34→22:00)
[2018-12-28 07:57] VITALS: BP 147/76
[2018-12-28] MEDS: FAMOTIDINE 20 MG (PEPCID) TABLET PO SCH ×2 (09:20→20:53)
[2018-12-28] MEDS: BISACODYL 5 MG (DULCOLAX) TABLET PO SCH (09:20)
[2018-12-28] MEDS: SERTRALINE 100 MG (ZOLOFT) TAB PO SCH (09:20)
--- NOTE | 2018-12-28 09:28 | NUR ---
PRIOR TO A.M. MEDICATIONS PULSE 58 WAS AND B/P WAS 147/76.
[2018-12-28] MEDS: LOSARTAN 100 MG (COZAAR) TABLET PO SCH (11:22)
--- NOTE | 2018-12-28 13:41 | Progress Note-Hospitalist ---
Subjective HPI/CC On Admission Date Seen by Provider: December 28, 2018 Time Seen by Provider: 13:38 The patient is a 63-year-old white male with known COPD who on the morning of the underwent ventral hernia repair per Dr. RAI. He denied any in more shortness of breath than usual the time of this discharge by this a day progressed he became increasingly more short of breath with wheezing and reportedly loose sounding but nonproductive cough aggravated by the fact that he could not cough forcefully due to abdominal pain from his surgery. He progressed to shortness of breath at rest and presented emergency room in significant respiratory distress with O2 saturations in the upper 70s he is re taining CO2 as well. Vapotherm was initiated in addition to prolong breathing treatments and IV Solu-Medrol. With this he was able to produce some thick brownish sputum which is not his norm. His white count was significantly elevated without evidence for overt pneumonia but did have some basilar atelectasis right greater than left for which pneumonia could not be excluded. He was admitted for treatment of acute COPD exacerbation meeting sepsis criteria although not severe. Lactate levels were within normal limits. He reports no past hospitalizations for pneumonia although he has had some outpatient bronchitis and one other episode of pneumonia. He is never been on a mechanical ventilator and has over [id number] smoking history but quit 6 years ago the presumed cause of the COPD. He reports history of peripheral vascular disease as well as left lumbar radiculopathy due to previous injury that is reportedly inoperable. He also was diagnosed with right renal cell carcinoma last year underwent right nephrectomy. There has been no reported evidence for recurrence. Subjective/Events-last exam Patient reports still has cough and chest feels tight but less short of breath. He was able to ambulate with 4 L of O2 yesterday. He reports feeling more short of breath with intermittent wheezing for 3 or 4 weeks prior to his surgery. He denies any confusion and reports that he slept well last night. Focused Exam Lactate Level 12/25/18 23:30: Lactic Acid Level 1.21 Objective Exam Vital Signs Vital Signs Date Time Temp Pulse Resp B/P (MAP) Pulse Ox O2 Delivery O2 Flow Rate FiO2 12/28/18 10:22 95 Nasal Cannula 3.00 12/28/18 07:57 98.0 59 18 147/76 (99) 12/27/18 14:45 30 Capillary Refill : Less Than 3 SecondsLess Than 3 Seconds General Appearance: No Apparent Distress, WD/WN HEENT: PERRL/EOMI Neck: Full Range of Motion, Normal Inspection, Non Tender Respiratory: Chest Non Tender, No Accessory Muscle Use (This morning), Crackles (In both bases right greater than left), Wheezing (Upper airway noises noted with no wheezing in the supine position with regular respiration. Improved from yesterday.) Cardiovascular: Regular Rate, Rhythm, No Edema, No Gallop, No JVD, No Murmur, Normal Peripheral Pulses Gastrointestinal: Normal Bowel Sounds, No Organomegaly, No Pulsatile Mass, Non Tender, Soft, Distended Back: Normal Inspection, No CVA Tenderness, No Vertebral Tenderness Extremity: Normal Inspection, Normal Range of Motion, Non Tender, No Calf Tenderness, No Pedal Edema, Slow Capillary Refill, Other (Feet warm but dorsalis pedis and posterior tibial pulses are absent bilaterally some atrophic changes are noted involving the feet right greater than left predominantly just loss of hair.) Neurologic/Psychiatric: Alert, Oriented x3, Normal Mood/Affect Skin: Normal Color, Warm/Dry Results/Procedures Lab Patient resulted labs reviewed. Assessment/Plan Assessment and Plan Assess & Plan/Chief Complaint Admission Diagnosis A/P 1. Acute hypercapnic respiratory failure due to underlying acute bronchitis or pneumonia following ventral hernia surgery slowly improving discussed the fact that since his exacerbation been going on for some time he was likely going to take longer to clear. 2. Sepsis not severe secondary to number 1. 3. COPD secondary to past tobaccoism. 4. History of solitary kidney due to right nephrectomy for hypernephroma reportedly last year. No reported evidence for recurrence. 5. Hyponatremia unclear etiology we'll repeat if levels are not improving on sa line will discontinue sertraline. Clinical Quality Measures DVT/VTE Risk/Contraindication: Risk Factor Score Per Nursin RFS Level Per Nursing on Admit: 4+=Very High AMBER BRENNAN MD December 28, 2018 13:41
[2018-12-28 14:25] LABS: BUN/CREATININE RATIO 17; CALCIUM 8.9 MG/DL (8.5-10.1); CARBON DIOXIDE 24 MMOL/L (21-32); CHLORIDE 101 MMOL/L (98-107); CREATININE SERUM 1.15 MG/DL (0.60-1.30); GFR ESTIMATED > 60; GLUCOSE 121 MG/DL (70-105); POTASSIUM 4.2 MMOL/L (3.6-5.0); SODIUM 135 MMOL/L (135-145)
[2018-12-28 15:45] VITALS: BP 161/86
[2018-12-28] MEDS: ATORVASTATIN 40 MG (LIPITOR) TABLET PO SCH (20:52)
[2018-12-28] MEDS: eZETimibe 10 MG (ZETIA) TABLET PO SCH (20:53)
[2018-12-28] MEDS: QUEtiapine 25 MG (SEROquel) TAB IMMEDIATE RELEASE PO SCH (20:53)
[2018-12-28 23:41] VITALS: BP 120/64
[2018-12-29] MEDS: CEFEPIME 1,000 MG/SWFI 10 ML IV PUSH IV SCH ×10 (00:36→23:31)
[2018-12-29] MEDS: methylPREDNISolone 125 MG (Solu-MEDROL) VIAL IV SCH ×4 (00:37→17:50)
[2018-12-29] MEDS: RT-ALBUTEROL/IPRATROPIUM 3 ML (DUONEB) VIAL INH SCH ×6 (03:40→21:20)
[2018-12-29] MEDS: CATHETER FLUSH 10 ML SYR IV SCH ×3 (05:59→20:36)
[2018-12-29 07:34] VITALS: BP 155/83
[2018-12-29 08:09] VITALS: BP 155/83
[2018-12-29] MEDS ORDERED: SERT100T8 PO (08:57)
[2018-12-29] MEDS ORDERED: SIMV80TA21 PO (08:57)
[2018-12-29] MEDS ORDERED: HYDR-3816 PO (08:57)
[2018-12-29] MEDS ORDERED: QUET50TA55 PO (08:57)
[2018-12-29] MEDS ORDERED: EZET10TA49 PO (08:57)
[2018-12-29] MEDS ORDERED: RANI150T11 PO (08:57)
--- NOTE | 2018-12-29 08:58 | NUR ---
PATIENTS MED REC WAS RECENTLY REVIEWED IN [facility], I COMPARED IT WITH THE EXT MED HX AND NO CHANGES WERE NOTED. I REVIEWED THE MED REC IT WAS PREVIOUSLY REPORTED.
[2018-12-29] MEDS: SERTRALINE 100 MG (ZOLOFT) TAB PO SCH (09:39)
[2018-12-29] MEDS: LOSARTAN 100 MG (COZAAR) TABLET PO SCH (09:39)
[2018-12-29] MEDS: BISACODYL 5 MG (DULCOLAX) TABLET PO SCH (09:39)
[2018-12-29] MEDS: FAMOTIDINE 20 MG (PEPCID) TABLET PO SCH ×2 (09:39→20:36)
--- NOTE | 2018-12-29 09:42 | NUR ---
prior to a.m. medications puls ewas 50 and b/p was 155/80
[2018-12-29] MEDS: NS IV 1000 ML 1,000 ML IV SCH (11:11)
--- NOTE | 2018-12-29 14:06 | NUR ---
REPORT RECEIVED FROM NICOLETTE QUESADA. ASSUMED CARE OF THE PATIENT AT THIS TIME.
--- NOTE | 2018-12-29 15:05 | Progress Note-Hospitalist ---
Progress Note Progress Notes/Assess & Plan Date Seen 12/29/18 Time Seen by Provider: 15:03 Assessment & Plan The patient reports he is doing much better today. He was able to walk in the hallways. He has not coughed up anything to speak of. He states that he has not use cigarettes for 6 months now. He has used various nicotine products and is reducing that dose. Physical exam: Lungs show distant breath sounds. He is clear posteriorly and has some rhonchi in the right anterior base. CV is regular. Extremities show no pedal edema. Impression COPD in exacerbation. Plan: Switch from IV Solu-Medrol to oral prednisone. Consider discharge in the a.m. FLACA BROOKS MD December 29, 2018 15:05
[2018-12-29 15:25] VITALS: BP 170/93
--- NOTE | 2018-12-29 17:53 | NUR ---
CALLED DR BROOKS PER PT REQUEST. PT HAS COMPLAINANTS OF SINUS CAVITY FEELING LIKE GLUE. PATIENT BLEW/COUGHED UP THICK CLEARISH MUCUS.
[2018-12-29] MEDS ORDERED: LORATADINE (CLARITIN) 10 MG TAB ONE (18:00)
[2018-12-29] MEDS: LORATADINE (CLARITIN) 10 MG TAB PO SCH (18:05)
[2018-12-29] MEDS: ATORVASTATIN 40 MG (LIPITOR) TABLET PO SCH (20:36)
[2018-12-29] MEDS: eZETimibe 10 MG (ZETIA) TABLET PO SCH (20:36)
[2018-12-29] MEDS: QUEtiapine 25 MG (SEROquel) TAB IMMEDIATE RELEASE PO SCH (20:36)
[2018-12-29 23:24] VITALS: BP 176/81
[2018-12-30] MEDS: RT-ALBUTEROL/IPRATROPIUM 3 ML (DUONEB) VIAL INH SCH ×3 (01:49→09:51)
[2018-12-30] MEDS: CATHETER FLUSH 10 ML SYR IV SCH (06:13)
[2018-12-30] MEDS: CEFEPIME 1,000 MG/SWFI 10 ML IV PUSH IV SCH ×4 (06:13→12:01)
[2018-12-30] MEDS ORDERED: predniSONE 20 MG TAB PO SCH (07:00)
[2018-12-30 08:00] VITALS: BP 183/88
[2018-12-30] MEDS: NS IV 1000 ML 1,000 ML IV SCH (08:14)
[2018-12-30] MEDS: LOSARTAN 100 MG (COZAAR) TABLET PO SCH (08:35)
[2018-12-30] MEDS: FAMOTIDINE 20 MG (PEPCID) TABLET PO SCH (08:35)
[2018-12-30] MEDS: BISACODYL 5 MG (DULCOLAX) TABLET PO SCH (08:35)
[2018-12-30] MEDS: LORATADINE (CLARITIN) 10 MG TAB PO SCH (08:35)
[2018-12-30] MEDS: SERTRALINE 100 MG (ZOLOFT) TAB PO SCH (08:35)
--- NOTE | 2018-12-30 11:54 | Progress Note-Hospitalist ---
Progress Note Progress Notes/Assess & Plan Date Seen 12/30/18 Time Seen by Provider: 11:51 Assessment & Plan The patient continues to feel better. He has been able to walk in the [place]. SaO2 on room air has been in the mid 90s. He is afebrile. Physical exam: He is bright and alert. Lungs show scattered wheezes greater posteriorly than anteriorly. CV is regular Impression: COPD with exacerbation. 2.responding to steroids. Plan: Discharge. See discharge sequence for medications and routines. FLACA BROOKS MD December 30, 2018 11:54
[2018-12-30] MEDS ORDERED: PRD20T PO (11:59)
--- NOTE | 2018-12-30 12:02 | Discharge Inst-Simple/Standard ---
Discharge Inst-Standard Patient Instructions/Follow Up Plan of Care/Instructions/FU: Medications as listed in the discharge sequence. Activity as tolerated. Appointment to see Dr. KIM in 7-10 days. Activity as Tolerated: Yes Goal: Resume activities had previous level Discharge Diet: No Restrictions Return to The Hospital For: Recurrence of symptoms FLAAC BROOKS MD December 30, 2018 12:02
[2018-12-30 12:19] VITALS: BP 183/88
--- NOTE | 2018-12-30 12:21 | NUR ---
BRENTON GODINEZ demonstrates understanding of discharge instructions and accurately returns instructions upon questioning. Copy of Post-Discharge Instructions and Medication Discharge Instructions given to PATIENT. BRENTON GODINEZ is able to manage continuing needs after discharge. Patients belongings returned to [facility]. Skin dry and intact; no breakdown noted. Patient discharged from [facility] on at 1220. BRENTON GODINEZ left floor AMBULATORY, accompanied by STAFF AND .
--- NOTE | 2019-01-01 11:31 | Physician Query Clarification ---
PQ-Link Infection to Dev/Proc Admission/Discharge Admission Date: December 26, 2018 at 01:16 Discharge Date: December 30, 2018 at 12:20 The medical record reflects the following clinical scenario: History/Risk Factors: 12/24 Ventral hernia repair, HTN, COPD Clinical Findings: SOB, wheezing, loose, productive cough, O2 sats 78%, retaining CO2 Treatment: Vapotherm, prolong breathing treatments, IV solu-Medrol Question: Can you specify if the Sepsis, pneumonia and acute bronchitis is due to/associated with 12/24 ventral hernia repair? Please document a response in Progress Note or Discharge Summary. 1. Yes - [infection] is due to/associated with [device or procedure]. 2. No - [infection] is not due to/associated with [device or procedure]. 3. Other, with explanation of the clinical findings. 4. Clinically undetermined, no explanation for the clinical findings. PHYSICIAN RESPONSE Specify if infection: 2 Please remember a lack of response to the above will prompt a phone page by CDI/Coding staff. In responding to this query, please exercise your independent professional judgment. The purpose of this communication is to more accurately reflect the complexity of your patients condition. The fact that a question is asked does not imply that any particular answer is desired or expected. Thank you for your timely response to this clarification. Requestors name: Violet THIS PHYSICIAN QUERY FORM IS A PERMANENT PART OF THE MEDICAL RECORD VIOLET PARKS January 01, 2019 11:31 AMBER BRENNAN MD January 01, 2019 11:56
== END 2018-12-30 12:20 | disposition home or self-care (01) | DRG 871 ==
LOC: EDUNIT# 23:14 → ER 23:16 → ICU 12-26 01:16 → 4TH 12-27 10:23
PROVIDERS: ADMIT Internal Medicine; ATTEND Internal Medicine
DX: A41.9 Sepsis, unspecified organism (principal); J18.1 Lobar pneumonia, unspecified organism; J20.9 Acute bronchitis, unspecified; J43.9 Emphysema, unspecified; J96.02 Acute respiratory failure with hypercapnia; J98.11 Atelectasis; I10 Essential (primary) hypertension; I73.9 Peripheral vascular disease, unspecified; M54.16 Radiculopathy, lumbar region; K58.0 Irritable bowel syndrome with diarrhea; K21.9 Gastro-esophageal reflux disease without esophagitis; F32.9 Major depressive disorder, single episode, unspecified; Z98.890 Other specified postprocedural states; Z87.891 Personal history of nicotine dependence; Z85.528 Personal history of other malignant neoplasm of kidney; Z90.5 Acquired absence of kidney
CPT/HCPCS: 36415; 36600; 71045; 80048; 80053; 81000; 82805; 83605; 85007; 85025; 85027; 85610; 85730; 87040; 87070; 87088; 87205; 93005; 94640; 94664; 94760; 96361; 96365; 96375; 99291

== ENCOUNTER 2019-12-13 14:14 | Emergency (ER) | payer BC, OTHER ==
[~2019-12-13] VITALS: Ht 177.8 cm; Wt 98.2 kg
[~2019-12-13 14:14] MED LIST changes: +EZET10TA17 PO; +EZET10TA49 PO; -EZET10TA5 PO; +LISI1TAB25 PO; -LISI1TAB8 PO; +PRD20T PO; +QUET50TA55 PO; +RANI-613 PO; +RANI150T11 PO; -RANI150T46 PO; +SERT100T8 PO; +SIMV80TA21 PO
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
[2019-12-13 15:24] VITALS: BP 129/77
--- OUTSIDE RECORDS SUMMARY | 2019-12-13 18:05 | XMS REPORT | Continuity of Care Document ---
Author Organization Unknown Address Unknown Phone Unavailable Allergies Active Description Code Type Severity Reaction Onset Reported/Identified Relationship to Patient Clinical Status Yes No Allergy Information Available [id number] Drug Allergy Unknown N/A 019 Yes No Known Drug Allergies [id number] Drug Allergy Unknown N/A 12/22/2018 Medications There is no data. Problems Date Dx Coded Attending Type Code Diagnosis Diagnosed By 10/19/2018 MARCO A KIM DO, Ot C64.1 MALIGNANT NEOPLASM OF RIGHT KIDNEY, EXCE 10/19/2018 MARCO A KIM DO Ot Z90.5 ACQUIRED ABSENCE OF KIDNEY 11/09/2018 MARCO A KIM DO Ot C64.1 MALIGNANT NEOPLASM OF RIGHT KIDNEY, EXCE 11/09/2018 MARCO A KIM DO Ot Z90.5 ACQUIRED ABSENCE OF KIDNEY 12/22/2018 MARCO A KIM DO Ot C64.1 MALIGNANT NEOPLASM OF RIGHT KIDNEY, EXCE 12/22/2018 MARCO A KIM DO Ot Z90.5 ACQUIRED ABSENCE OF KIDNEY 12/22/2018 FINESSE RAI MD Ot Z01.81 8 ENCOUNTER FOR OTHER PREPROCEDURAL EXAMIN 12/24/2018 FINESSE RAI MD Ot D12.5 BENIGN NEOPLASM OF SIGMOID COLON 12/24/2018 FINESSE RAI MD Ot E66.9 OBESITY, UNSPECIFIED 12/24/2018 FINESSE RAI MD Ot E78.00 PURE HYPERCHOLESTEROLEMIA, UNSPECIFIED 12/24/2018 FINESSE RAI MD Ot F32.9 MAJOR DEPRESSIVE DISORDER, SINGLE EPISOD 12/24/2018 FINESSE RAI MD Ot I10 ESSENTIAL (PRIMARY) HYPERTENSION 12/24/2018 FINESSE RAI MD Ot J44.9 CHRONIC OBSTRUCTIVE PULMONARY DISEASE, U 12/24/2018 FINESSE RAI MD Ot K43.2 INCISIONAL HERNIA WITHOUT OBSTRUCTION OR 12/24/2018 FINESSE RAI MD Ot K63.89 OTHER SPECIFIED DISEASES OF INTESTINE 12/24/2018 FINESSE RAI MD, Ot K64.1 SECOND DEGREE HEMORRHOIDS 12/24/2018 FINESSE RAI MD, Ot Z12.11 ENCOUNTER FOR SCREENING FOR MALIGNANT NE 12/24/2018 FINESSE RAI MD, Ot Z68.30 BODY MASS INDEX (BMI) 30.0-30.9, ADULT 12/24/2018 FINESSE RAI MD, Ot Z79.89 9 OTHER INCOMING INSPECTOR (CURRENT) DRUG THERAPY 12/24/2018 FINESSE RAI MD, Ot Z85.52 8 PERSONAL HISTORY OF OTHER MALIGNANT NEOP 12/24/2018 FINESSE RAI MD, Ot Z87.89 1 PERSONAL HISTORY OF NICOTINE DEPENDENCE 12/24/2018 FINESSE RAI MD, Ot Z90.5 ACQUIRED ABSENCE OF KIDNEY 12/30/2018 AMBER BRENNAN MD Ot A41. 9 SEPSIS, UNSPECIFIED ORGANISM 12/30/2018 AMBER BRENNAN MD Ot F32. 9 MAJOR DEPRESSIVE DISORDER, SINGLE EPISOD 12/30/2018 AMBER BRENNAN MD Ot I10 ESSENTIAL (PRIMARY) HYPERTENSION 12/30/2018 AMBER BRENNAN MD Ot I73. 9 PERIPHERAL VASCULAR DISEASE, UNSPECIFIED 12/30/2018 AMBER BRENNAN MD Ot J18. 1 LOBAR PNEUMONIA, UNSPECIFIED ORGANISM 12/30/2018 AMBER BRENNAN MD Ot J20. 9 ACUTE BRONCHITIS, UNSPECIFIED 12/30/2018 AMBER BRENNAN MD Ot J43. 9 EMPHYSEMA, UNSPECIFIED 12/30/2018 AMBER BRENNAN MD Ot J96. 02 ACUTE RESPIRATORY FAILURE WITH HYPERCAPN 12/30/2018 AMBER BRENNAN MD Ot J98. 11 ATELECTASIS 12/30/2018 AMBER BRENNAN MD Ot K21. 9 GASTRO-ESOPHAGEAL REFLUX DISEASE WITHOUT 12/30/2018 AMBER BRENNAN MD Ot K58. 0 IRRITABLE BOWEL SYNDROME WITH DIARRHEA 12/30/2018 AMBER BRENNAN MD Ot M54. 16 RADICULOPATHY, LUMBAR REGION 12/30/2018 AMBER BRENNAN MD Ot T81.44XA SEPSIS FOLLOWING A PROCEDURE, INITIAL EN 12/30/2018 AMBER BRENNAN MD Ot Z85.528 PERSONAL HISTORY OF OTHER MALIGNANT NEOP 12/30/2018 AMBER BRENNAN MD Ot Z87.891 PERSONAL HISTORY OF NICOTINE DEPENDENCE 12/30/2018 AMBER BRENNAN MD Ot Z90. 5 ACQUIRED ABSENCE OF KIDNEY 12/30/2018 AMBER BRENNAN MD Ot Z98.890 OTHER SPECIFIED POSTPROCEDURAL STATES 12/31/2018 FINESSE RAI MD, Ot D12.5 BENIGN NEOPLASM OF SIGMOID COLON 12/31/2018 FINESSE RAI MD, Ot E66.9 OBESITY, UNSPECIFIED 12/31/2018 FINESSE RAI MD, Ot E78.00 PURE HYPERCHOLESTEROLEMIA, UNSPECIFIED 12/31/2018 FINESSE RAI MD, Ot F32.9 MAJOR DEPRESSIVE DISORDER, SINGLE EPISOD 12/31/2018 FINESSE RAI MD, Ot I10 ESSENTIAL (PRIMARY) HYPERTENSION 12/31/2018 FINESSE RAI MD, Ot J44.9 CHRONIC OBSTRUCTIVE PULMONARY DISEASE, U 12/31/2018 FINESSE RAI MD, Ot K43.2 INCISIONAL HERNIA WITHOUT OBSTRUCTION OR 12/31/2018 FINESSE RAI MD, Ot K63.89 OTHER SPECIFIED DISEASES OF INTESTINE 12/31/2018 FINESSE RAI MD, Ot K64.1 SECOND DEGREE HEMORRHOIDS 12/31/2018 FINESSE RAI MD, Ot Z12.11 ENCOUNTER FOR SCREENING FOR MALIGNANT NE 12/31/2018 FINESSE RAI MD, Ot Z68.30 BODY MASS INDEX (BMI) 30.0-30.9, ADULT 12/31/2018 FINESSE RAI MD, Ot Z79.89 9 OTHER INCOMING INSPECTOR (CURRENT) DRUG THERAPY 12/31/2018 FINESSE RAI MD, Ot Z85.52 8 PERSONAL HISTORY OF OTHER MALIGNANT NEOP 12/31/2018 FINESSE RAI MD, Ot Z87.89 1 PERSONAL HISTORY OF NICOTINE DEPENDENCE 12/31/2018 FINESSE RAI MD, Ot Z90.5 ACQUIRED ABSENCE OF KIDNEY Procedures There is no data. Results Test Result Range Methicillin resistant Staphylococcus aur eus (MRSA) screening culture - 12/24/18 12:10 Methicillin resistant Staphylococcus aureus (MRSA) scr eening culture NEG NRG Bacterial blood culture - 12/26/18 00:04 Bacterial blood culture NG NRG Complete blood count (CBC) with automate d white blood cell (WBC) differential - 12/25/18 23:30 Blood leukocytes automated count (number/volume) 14.2 10*3/uL 4.3-11.0 Blood erythrocytes automated count (number/volume) 3.83 10*6/uL 4.35-5.85 Venous blood hemoglobin measurement (mass/volume) 12.4 g/dL 13.3-17.7 Blood hematocrit (volume fraction) 35 % 40-54 Automated erythrocyte mean corpuscular volume 92 [ foz_us] 80-99 Automated erythrocyte mean corpuscular h emoglobin (mass per erythrocyte) 32 pg 25-34 Automated erythrocyte mean corpuscular h emoglobin concentration measurement (mass/volume) 35 g/dL 32-36 Automated erythrocyte distribution width ratio 13. 1 % 10.0- 14.5 Automated blood platelet count (count/volume) 158 10*3/uL 130-400 Automated blood platelet mean volume measurement 9.6 [foz_us] 7.4-10.4 Automated blood neutrophils/100 leukocytes 83 % 42-75 Automated blood lymphocytes/100 leukocytes 5 % 12-44 Blood monocytes/100 leukocytes 11 % 0-12 Automated blood eosinophils/100 leukocytes 2 % 0-10 Automated blood basophils/100 leukocytes 0 % 0-10 Blood neutrophils automated count (number/volume) 11.8 10*3 1.8-7.8 Blood lymphocytes automated count (number/volume) 0.7 10*3 1.0-4.0 Blood monocytes automated count (number/volume) 1. 5 10*3 0.0-1.0 Automated eosinophil count 0.2 10*3/uL 0 .0-0.3 Automated blood basophil count (count/volume) 0.0 10*3/uL 0.0-0.1 PT panel in platelet poor plasma by coag ulation assay - 12/25/18 23:30 Prothrombin time (PT) in platelet poor plasma by coagu lation assay 15.1 s 12.2-14.7 INR in platelet poor plasma or blood by coagulation as say 1.1 0.8-1.4 Activated partial thromboplastin time (a PTT) in platelet poor plasma bycoagulation assay - 12/25/18 23:30 Activated partial thromboplastin time (a PTT) in platelet poor plasma bycoagulation assay 40 s 24-35 Blood lactic acid measurement (moles/vol ume) - 12/25/18 23:30 Blood lactic acid measurement (moles/volume) 1.21 mmol/L 0.50-2.00 Comprehensive metabolic panel - 12/25/18 23:30 Serum or plasma sodium measurement (moles/volume) 124 mmol/L 135-145 Serum or plasma potassium measurement (moles/volume) 4.1 mmol/L 3.6-5.0 Serum or plasma chloride measurement (moles/volume) 89 mmol/L 98-107 Carbon dioxide 24 mmol/L 21-32 Serum or plasma anion gap determination (moles/volume) 11 mmol/L 5-14 Serum or plasma urea nitrogen measurement (mass/volume ) 17 mg/dL 7-18 Serum or plasma creatinine measurement (mass/volume) 1.47 mg/dL 0.60-1.30 Serum or plasma urea nitrogen/creatinine mass ratio 12 NRG Serum or plasma creatinine measurement w ith calculation of estimated glomerular filtration rate 49 NRG Serum or plasma glucose measurement (mass/volume) 116 mg/dL 70-105 Serum or plasma calcium measurement (mass/volume) 9.0 mg/dL 8.5-10.1 Serum or plasma total bilirubin measurement (mass/volu me) 1.2 mg/dL 0.1-1.0 Serum or plasma alkaline phosphatase christine surement (enzymatic activity/volume) 54 U/L 40-136 Serum or plasma aspartate aminotransfera se measurement (enzymatic activity/volume) 20 U/L 5-34 Serum or plasma alanine aminotransferase measurement (enzymatic activity/volume) 19 U/L 0-55 Serum or plasma protein measurement (mass/volume) 7.2 g/dL 6.4-8.2 Serum or plasma albumin measurement (mass/volume) 4.2 g/dL 3.2-4.5 CALCIUM CORRECTED 8.8 mg/dL 8.5-10.1 Blood manual differential performed dete ction - 12/25/18 23:30 Blood monocytes/100 leukocytes 10 % NRG Manual blood segmented neutrophils/100 leukocytes 86 % NRG Manual blood lymphocytes/100 leukocytes 4 % NRG Bacterial blood culture - 12/25/18 23:30 Bacterial blood culture NG NRG Arterial blood gas measurement - 9 23:40 Blood pCO2 51 mm[Hg] 35-45 Blood pO2 82 mm[Hg] 79-93 Arterial blood bicarbonate measurement (moles/volume) 27 mmol/L 23-27 Arterial blood base excess by calculation 1.7 mmol /L -2.5-2.5 Arterial blood oxygen saturation measurement 96 % 94-100 * Inhaled oxygen flow rate 5 NRG Arterial blood pH measurement with patient temperature correction 7.34 7.37-7.43 Arterial blood carbon dioxide, total measurement (mole s/volume) 28.5 mmol/L 21.0-31.0 Body site RIGHT RADIAL NRG Assessment of wrist artery patency prior to arterial p uncture POSITIVE NRG Setting of ventilation mode NO NR G Measurement of body temperature 98.0 NRG Complete urinalysis with reflex to cultu re - 12/26/18 00:08 Urine color determination YELLOW NRG Urine clarity determination CLEAR NR G Urine pH measurement by test strip 6 5-9 Specific gravity of urine by test strip 1.020 1.016-1.022 Urine protein assay by test strip, semi-quantitative 1+ NEGATIVE Urine glucose detection by automated test strip NE GATIVE NEGATIVE Erythrocytes detection in urine sediment by light micr oscopy NEGATIVE NEGATIVE Urine ketones detection by automated test strip NE GATIVE NEGATIVE Urine nitrite detection by test strip NEGATIVE NEGATIVE Urine total bilirubin detection by test strip NEGA TIVE NEGATIVE Urine urobilinogen measurement by automated test strip (mass/volume) 1 mg/dL NORMAL Urine leukocyte esterase detection by dipstick 1+ NEGATIVE Automated urine sediment erythrocyte cou nt by microscopy (number/high power field) NONE NRG Automated urine sediment leukocyte count by microscopy (number/high power field) [HPF] NRG Bacteria detection in urine sediment by light microsco py FEW NRG Squamous epithelial cells detection in u rine sediment by light microscopy 0-2 NRG Crystals detection in urine sediment by light microsco py NONE NRG Casts detection in urine sediment by light microscopy NONE NRG Mucus detection in urine sediment by light microscopy SMALL NRG Complete urinalysis with reflex to culture CULTURE PENDING NRG Complete urinalysis with reflex to cultu re - 12/26/18 01:35 Urine color determination YELLOW NRG Urine clarity determination CLEAR NR G Urine pH measurement by test strip 6 5-9 Specific gravity of urine by test strip 1.015 1.016-1.022 Urine protein assay by test strip, semi-quantitative 2+ NEGATIVE Urine glucose detection by automated test strip NE GATIVE NEGATIVE Erythrocytes detection in urine sediment by light micr oscopy NEGATIVE NEGATIVE Urine ketones detection by automated test strip NE GATIVE NEGATIVE Urine nitrite detection by test strip NEGATIVE NEGATIVE Urine total bilirubin detection by test strip NEGA TIVE NEGATIVE Urine urobilinogen measurement by automated test strip (mass/volume) NORMAL NORMAL Urine leukocyte esterase detection by dipstick NEG ATIVE NEGATIVE Automated urine sediment erythrocyte cou nt by microscopy (number/high power field) NONE NRG Automated urine sediment leukocyte count by microscopy (number/high power field) NONE NRG Bacteria detection in urine sediment by light microsco py TRACE NRG Squamous epithelial cells detection in u rine sediment by light microscopy RARE NRG Crystals detection in urine sediment by light microsco py NONE NRG Casts detection in urine sediment by light microscopy PRESENT NRG Mucus detection in urine sediment by light microscopy SMALL NRG Complete urinalysis with reflex to culture CULTURE PENDING NRG Hyaline casts detection in urine sediment by light khanh roscopy 0-2 NRG Bacterial urine culture - 12/26/18 01:35 Bacterial urine culture NG NRG Sputum Gram stain - 12/26/18 01:58 Sputum Gram stain Mixed Bacterial Kathie NRG Bacterial sputum culture - 12/26/18 01:5 8 QUANTITY OF GROWTH . NRG Bacterial sputum culture USUAL RESP NRG Complete blood count (CBC) with automate d white blood cell (WBC) differential - 12/26/18 04:08 Blood leukocytes automated count (number/volume) 10.5 10*3/uL 4.3-11.0 Blood erythrocytes automated count (number/volume) 3.59 10*6/uL 4.35-5.85 Venous blood hemoglobin measurement (mass/volume) 11.7 g/dL 13.3-17.7 Blood hematocrit (volume fraction) 33 % 40-54 Automated erythrocyte mean corpuscular volume 91 [ foz_us] 80-99 Automated erythrocyte mean corpuscular h emoglobin (mass per erythrocyte) 33 pg 25-34 Automated erythrocyte mean corpuscular h emoglobin concentration measurement (mass/volume) 36 g/dL 32-36 Automated erythrocyte distribution width ratio 13. 2 % 10.0- 14.5 Automated blood platelet count (count/volume) 129 10*3/uL 130-400 Automated blood platelet mean volume measurement 9.5 [foz_us] 7.4-10.4 Automated blood neutrophils/100 leukocytes 90 % 42-75 Automated blood lymphocytes/100 leukocytes 4 % 12-44 Blood monocytes/100 leukocytes 5 % 0-12 Automated blood eosinophils/100 leukocytes 1 % 0-10 Automated blood basophils/100 leukocytes 0 % 0-10 Blood neutrophils automated count (number/volume) 9.5 10*3 1.8-7.8 Blood lymphocytes automated count (number/volume) 0.4 10*3 1.0-4.0 Blood monocytes automated count (number/volume) 0. 6 10*3 0.0-1.0 Automated eosinophil count 0.1 10*3/uL 0 .0-0.3 Automated blood basophil count (count/volume) 0.0 10*3/uL 0.0-0.1 Comprehensive metabolic panel - 12/26/18 04:08 Serum or plasma sodium measurement (moles/volume) 123 mmol/L 135-145 Serum or plasma potassium measurement (moles/volume) 4.3 mmol/L 3.6-5.0 Serum or plasma chloride measurement (moles/volume) 92 mmol/L 98-107 Carbon dioxide 22 mmol/L 21-32 Serum or plasma anion gap determination (moles/volume) 9 mmol/L 5-14 Serum or plasma urea nitrogen measurement (mass/volume ) 18 mg/dL 7-18 Serum or plasma creatinine measurement (mass/volume) 1.33 mg/dL 0.60-1.30 Serum or plasma urea nitrogen/creatinine mass ratio 14 NRG Serum or plasma creatinine measurement w ith calculation of estimated glomerular filtration rate 54 NRG Serum or plasma glucose measurement (mass/volume) 136 mg/dL 70-105 Serum or plasma calcium measurement (mass/volume) 8.5 mg/dL 8.5-10.1 Serum or plasma total bilirubin measurement (mass/volu me) 0.9 mg/dL 0.1-1.0 Serum or plasma alkaline phosphatase christine surement (enzymatic activity/volume) 53 U/L 40-136 Serum or plasma aspartate aminotransfera se measurement (enzymatic activity/volume) 20 U/L 5-34 Serum or plasma alanine aminotransferase measurement (enzymatic activity/volume) 17 U/L 0-55 Serum or plasma protein measurement (mass/volume) 6.8 g/dL 6.4-8.2 Serum or plasma albumin measurement (mass/volume) 3.9 g/dL 3.2-4.5 CALCIUM CORRECTED 8.6 mg/dL 8.5-10.1 Whole blood basic metabolic panel - 12/03 02/19 14:00 Serum or plasma sodium measurement (moles/volume) 135 mmol/L 135-145 Serum or plasma potassium measurement (moles/volume) 4.2 mmol/L 3.6-5.0 Serum or plasma chloride measurement (moles/volume) 101 mmol/L 98-107 Carbon dioxide 24 mmol/L 21-32 Serum or plasma anion gap determination (moles/volume) 10 mmol/L 5-14 Serum or plasma urea nitrogen measurement (mass/volume ) 20 mg/dL 7-18 Serum or plasma creatinine measurement (mass/volume) 1.15 mg/dL 0.60-1.30 Serum or plasma urea nitrogen/creatinine mass ratio 17 NRG Serum or plasma creatinine measurement w ith calculation of estimated glomerular filtration rate > NRG Serum or plasma glucose measurement (mass/volume) 121 mg/dL 70-105 Serum or plasma calcium measurement (mass/volume) 8.9 mg/dL 8.5-10.1 Encounters ACCT No. Visit Date/Time Discharge Status Pt. Type Provider Facility Loc./Unit Complaint [id number] 2019 14:45:00 23:59:59 CLS Preadmit MARCO A KIM DO [facility] RAD OTHER SPECIFIED PERIPHERAL DISEASE [id number] 12/26/2018 01:16:00 12:20:00 DIS Inpatient MIKA ADAIR, AMBER Fuller [facility] 4TH COPD ACUTE EXACERBATION ,BIBASILAR PNA, [id number] 12/24/2018 11:27:00 18:58:00 DIS Outpatient FINESSE RAI MD [facility] SDC SCREENING, UMBILICAL HE RNIA [id number] 12/22/2018 05:40:00 15:42:00 DIS Outpatient FINESSE RAI MD [facility] PREOP SCREENING, UMBILICAL HE RNIA [id number] 10/19/2018 09:55:00 23:59:59 CLS Outpatient MARCO A KIM DO [facility] RAD FS MALIGNANT NEOPL ASM OF R KIDNEY
== END 2019-12-13 15:24 | disposition home or self-care (01) ==
LOC: EDUNIT# 14:14 → ER FS 14:16
DX: S16.1XXA Strain of muscle, fascia and tendon at neck level, initial encounter (principal); R07.81 Pleurodynia; I10 Essential (primary) hypertension; J43.9 Emphysema, unspecified; K21.9 Gastro-esophageal reflux disease without esophagitis; F32.9 Major depressive disorder, single episode, unspecified; Z85.528 Personal history of other malignant neoplasm of kidney; Z79.52 Long term (current) use of systemic steroids; Z87.891 Personal history of nicotine dependence; V89.2XXA Person injured in unspecified motor-vehicle accident, traffic, initial encounter
CPT/HCPCS: 71100; 72040

== ENCOUNTER → 2019-12-17 | Outpatient (CLI) | payer OTHER ==
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
== END ==
LOC: RAD FS 09:53
PROVIDERS: ATTEND Emergency Medicine
DX: S22.32XA Fracture of one rib, left side, initial encounter for closed fracture (principal); V89.2XXA Person injured in unspecified motor-vehicle accident, traffic, initial encounter
CPT/HCPCS: 71046

== ENCOUNTER → 2021-02-03 | Outpatient (CLI) | payer BC ==
[~2021-02-03] MED LIST changes: -LISI1TAB25 PO; +LISI1TAB46 PO; +QUET50TA22 PO; -QUET50TA55 PO; +SERT-414 PO; -SERT100T8 PO
--- NOTE | 2021-02-03 14:48 | Diagnostic Imaging Report ---
Supine abdomen 1223 IMPRESSION: Abdominal bloating A single supine view was obtained. There is gas in both the large and small bowel in a nonspecific fashion. The bowel gas pattern is similar to the prior CT abdomen/pelvis exam of 10/19/2018. There is no evidence for bowel obstruction. There does appear to be at least a moderate amount of fecal material in the ascending colon. There is no mass or organomegaly or pathological calcifications evident. Surgical clips are again seen overlying the right mid abdomen. The osseous structures are intact. IMPRESSION: The bowel gas pattern is nonspecific. There is no acute abnormality identified. Dictated by: Dictated on workstation # [id number]
== END ==
LOC: RAD FS 12:05
PROVIDERS: ATTEND Emergency Medicine
DX: K56.41 Fecal impaction (principal)
CPT/HCPCS: 74018

== ENCOUNTER → 2022-02-19 | Outpatient (CLI) | payer BC ==
[~2022-02-19] MED LIST changes: -QUET50TA22 PO; +QUET50TA23 PO
--- NOTE | 2022-02-19 13:46 | Diagnostic Imaging Report ---
PROCEDURE: US Renal Bilateral. TECHNIQUE: Multiple real-time grayscale images were obtained over the kidneys in various projections bilaterally. INDICATION: History of kidney cancer and right-sided nephrectomy. Right kidney is surgically absent. Left kidney measures 13.6 x 5.6 x 6.9 cm. Left kidney shows normal cortical thickness and echogenicity. No calculi are seen. No hydronephrosis. No renal mass is identified. Left ureteral jet was visualized in the urinary bladder. IMPRESSION: Status post right nephrectomy. The left kidney is unremarkable. Dictated by: Dictated on workstation # [id number]
== END ==
LOC: RAD FS 07:39
PROVIDERS: ATTEND Nurse Practitioner Family
DX: Z90.5 Acquired absence of kidney (principal); Z85.528 Personal history of other malignant neoplasm of kidney
CPT/HCPCS: 76770

== ENCOUNTER → 2022-02-26 | Outpatient (CLI) | payer BC | LOC: CARDFS 14:44 | PROVIDERS: ATTEND Physician Assistant | DX: I11.9 Hypertensive heart disease without heart failure (principal); I77.1 Stricture of artery; E78.49 Other hyperlipidemia | CPT/HCPCS: 93306 ==

== ENCOUNTER → 2022-03-18 | Outpatient (CLI) | payer BC ==
[~2022-03-18] MED LIST changes: +REGADENOSON 0.4 MG/5 ML SYR (LEXISCAN) IV ONE
[2022-03-18] MEDS: CATHETER FLUSH 10 ML SYR IVP PRN (08:03)
[2022-03-18 09:31] VITALS: BP 170/95
--- NOTE | 2022-03-18 11:11 | Cardiology Stress Test Report ---
Stress Test Report Date of Procedure/Referring: Date of Procedure: Mar 18, 2022 PCP Ortega Livingston DO Admitting Physician Admitting Physician: Attending Physician: Shilpa Rico Indications: Hyperlipidemia, HTN Baseline Heart Rate: 50 Baseline Blood Pressure: Blood Pressure Systolic: 170 Blood Pressure Diastolic: 95 Baseline Vitals Vital Signs Date Time Temp Pulse Resp B/P (MAP) Pulse Ox O2 Delivery O2 Flow Rate FiO2 03/18/22 09:31 50 170/95 (120) Baseline EKG: Baseline EKG: NSR Summary After explaining the procedure to the patient, he signed a consent and then brought to the stress nuclear laboratory. Patient received 0.4 mg Lexiscan for stress test, ECG, heart rate and blood pressure were monitored continuously. Resting and stress dose of radio tracer were injected, imaging was acquired and reviewed in short axis, horizontal long axis and vertical long axis views. TID: 1.04 SSS: 1 SDS: 1 EF: 66 1. Patient tolerated Lexiscan well 2. No significant ischemia or infarction on SPECT images 3. Normal left ventricular size, ejection fraction 66% Copy Copies To 1: ORTEGA LIVINGSTON BASHAR J MD Mar 18, 2022 11:11
== END ==
LOC: CARD 08:00
PROVIDERS: ATTEND Physician Assistant
DX: I10 Essential (primary) hypertension (principal); E78.49 Other hyperlipidemia; I77.1 Stricture of artery
CPT/HCPCS: 78452; 93017; A9502